=== PATIENT | male | born 1990 | race Caucasian/White ===

== ENCOUNTER 2016-10-05 12:27 | Emergency (ER) | payer BC ==
[2016-10-05] MEDS ORDERED: Ketorolac 30 MG/ML SDV IVPUSH ONE (13:34)
[2016-10-05] MEDS ORDERED: Sodium Chloride 0.9% 2.5 ML Syringe FLUSH PRN (13:34)
[2016-10-05] MEDS ORDERED: Sodium Chloride 0.9% 10 ML Syringe FLUSH PRN (13:34)
--- NOTE | 2016-10-05 14:36 | EDM.PDOC ---
ED HPI GENERAL MEDICAL PROBLEM - General Chief Complaint: Genitourinary Problem Stated Complaint: LOWER ABD PAIN Time Seen by Provider: 10/05/16 13:07 Source of Information: Reports: Patient History Limitations: Reports: No Limitations - History of Present Illness INITIAL COMMENTS - FREE TEXT/NARRATIVE: History of present illness: []Patient started having pain in his right testicle at 8 PM last night. Denies having any trauma or previous similar symptoms. He's not had pain with urinating denies any blood in his urine. Review of systems: As per history of present illness and below otherwise all systems reviewed and negative. Past medical history: As per history of present illness and as reviewed below otherwise noncontributory. Surgical history: As per history of present illness and as reviewed below otherwise noncontributory. Social history: No reported history of drug or alcohol abuse. Family history: As per history of present illness and as reviewed below otherwise noncontributory. Physical exam: General: Well developed, well nourished in NAD HEENT: Atraumatic, normocephalic, pupils reactive, negative for conjunctival pallor or scleral icterus, mucous membranes moist, throat clear, neck supple, nontender, trachea midline. Lungs: Clear to auscultation, breath sounds equal bilaterally, chest nontender. Heart: S1S2, regular, negative for clicks, rubs, or JVD. Abdomen: Soft, nondistended, nontender. Negative for masses or hepatosplenomegaly. Negative for costovertebral tenderness. Pelvis: Stable nontender. Genitourinary: Deferred. Rectal: Deferred. Extremities: Atraumatic, negative for cords or calf pain. Neurovascular unremarkable. Neuro: Awake, alert, oriented. Cranial nerves II through XII unremarkable. Cerebellum unremarkable. Motor and sensory unremarkable throughout. Exam nonfocal. Diagnostics: []UA, ultrasound negative for torsion findings suggestive of epididymitis Therapeutics: []Patient is given Toradol for pain Impression: []Epididymitis Plan: []Cipro, ice, elevate testicles follow-up with Dr. Henson as needed Definitive disposition and diagnosis as appropriate pending reevaluation and review of above. Right Pelvic Pain Score (Numeric/FACES): 8 - Related Data Allergies Allergy/AdvReac Type Severity Reaction Status Date / Time No Known Allergies Allergy Verified 10/05/16 12:40 Home Meds: Home Meds Ciprofloxacin HCl [Cipro] 500 mg PO BID #20 tablet 10/05/16 [Rx] Past Medical History - Past Surgical History GI Surgical History: Reports: Other (See Below) Other GI Surgeries/Procedures: Unknown esophogeal surgery as an . Musculoskeletal Surgical History: Reports: Arthroscopic Knee Social & Family History - Family History Family Medical History: Noncontributory - Tobacco Use Smoking Status *Q: Current Every Day Smoker Years of Tobacco use: 8 Packs/Tins Daily: 1 - Recreational Drug Use Recreational Drug Use: No ED ROS GENERAL - Review of Systems Review Of Systems: See Below ED EXAM, RENAL/ - Physical Exam Exam: See Below (See history of present illness) Course - Vital Signs Last Recorded V/S: Last Vital Signs Temp 36.8 C 10/05/16 14:29 Pulse 58 L 10/05/16 14:29 Resp 18 10/05/16 14:29 BP 116/67 10/05/16 14:29 Pulse Ox 98 10/05/16 14:29 - Orders/Labs/Meds Orders: Active Orders 24 hr Category Date Time Status Scrotal Duplex Ltd [US] Routine Exams 10/05/16 13:45 Taken Testicular US [Scrotum and Contents] [US] Stat Exams 10/05/16 13:34 Taken Sodium Chloride 0.9% [Saline Flush] Med 10/05/16 13:34 Active 10 ml FLUSH ASDIRECTED PRN Sodium Chloride 0.9% [Saline Flush] Med 10/05/16 13:34 Active 2.5 ml FLUSH ASDIRECTED PRN Saline Lock Insert [OM.PC] Stat Oth 10/05/16 13:34 Ordered Medication Orders Sodium Chloride (Saline Flush) 10 ml FLUSH ASDIRECTED PRN PRN Reason: Keep Vein Open Last Admin: 10/05/16 14:27 Dose: 10 ml Sodium Chloride (Saline Flush) 2.5 ml FLUSH ASDIRECTED PRN PRN Reason: Keep Vein Open Last Admin: 10/05/16 14:27 Dose: 2.5 ml Labs: Laboratory Tests 10/05/16 Range/Units 14:20 Urine Color YELLOW Urine Appearance CLEAR Urine pH 5.5 (5.0-8.0) Ur Specific [place] <= 1.005 (1.001-1.035) Urine Protein NEGATIVE (NEGATIVE) mg/dL Urine Glucose (UA) NEGATIVE (NEGATIVE) mg/dL Urine Ketones NEGATIVE (NEGATIVE) mg/dL Urine Occult Blood NEGATIVE (NEGATIVE) Urine Nitrite NEGATIVE (NEGATIVE) Urine Bilirubin NEGATIVE (NEGATIVE) Urine Urobilinogen 0.2 (<2.0) EU/dL Ur Leukocyte Esterase NEGATIVE (NEGATIVE) Urine RBC 0-1 (0-2/HPF) Urine WBC 0-2 (0-5/HPF) Ur Epithelial Cells OCCASIONAL (NONE-FEW) Urine Bacteria FEW (NEGATIVE) Meds: Medications Generic Name Dose Route Start Last Admin Trade Name Freq PRN Reason Stop Dose Admin Sodium Chloride 10 ml 10/05/16 13:34 10/05/16 14:27 Saline Flush FLUSH 10 ml ASDIRECTED PRN Administration Keep Vein Open Sodium Chloride 2.5 ml 10/05/16 13:34 10/05/16 14:27 Saline Flush FLUSH 2.5 ml ASDIRECTED PRN Administration Keep Vein Open Discontinued Medications Generic Name Dose Route Start Last Admin Trade Name Freq PRN Reason Stop Dose Admin Ketorolac Tromethamine 30 mg 10/05/16 13:34 10/05/16 14:27 Toradol IVPUSH 10/05/16 13:35 30 mg ONETIME ONE Administration Departure - Departure Time of Disposition: 15:02 Disposition: Home, Self-Care 01 Condition: Good Clinical Impression: Epididymitis - Discharge Information Prescriptions: Ciprofloxacin HCl [Cipro] 500 mg PO BID #20 tablet Referrals: PCP,None [Primary Care Provider] - Forms: ED Department Discharge Additional Instructions: The following information is given to patients seen in the emergency department who are being discharged to home. This information is to outline your options for follow-up care. We provide all patients seen in our emergency department with a follow-up referral. The need for follow-up, as well as the timing and circumstances, are variable depending upon the specifics of your emergency department visit. If you don't have a primary care physician on staff, we will provide you with a referral. We always advise you to contact your personal physician following an emergency department visit to inform them of the circumstance of the visit and for follow-up with them and/or the need for any referrals to a consulting specialist. The emergency department will also refer you to a specialist when appropriate. This referral assures that you have the opportunity for follow-up care with a specialist. All of these measure are taken in an effort to provide you with optimal care, which includes your follow-up. Under all circumstances we always encourage you to contact your private physician who remains a resource for coordinating your care. When calling for follow-up care, please make the office aware that this follow-up is from your recent emergency room visit. If for any reason you are refused follow-up, please contact the [facility] Emergency Department at and asked to speak to the emergency department charge nurse. Cipro twice a day for 10 days, Motrin for pain, ice and elevate testicle as much as possible. follow-up with urology [facility] Specialty [facility] - Urology [address] [place] [id number] - My Orders Last 24 Hours: My Active Orders 10/05/16 13:34 Testicular US [Scrotum and Contents] [US] Stat Sodium Chloride 0.9% [Saline Flush] 10 ml FLUSH ASDIRECTED PRN Sodium Chloride 0.9% [Saline Flush] 2.5 ml FLUSH ASDIRECTED PRN Saline Lock Insert [OM.PC] Stat 10/05/16 13:45 Scrotal Duplex Ltd [US] Routine - Assessment/Plan Last 24 Hours: My Active Orders 10/05/16 13:34 Testicular US [Scrotum and Contents] [US] Stat Sodium Chloride 0.9% [Saline Flush] 10 ml FLUSH ASDIRECTED PRN Sodium Chloride 0.9% [Saline Flush] 2.5 ml FLUSH ASDIRECTED PRN Saline Lock Insert [OM.PC] Stat 10/05/16 13:45 Scrotal Duplex Ltd [US] Routine
[2016-10-05 15:33] VITALS: BP 114/56
--- NOTE | 2016-10-07 12:26 | US ---
EXAM DATE: 10/05/16 PATIENT'S AGE: 25 Patient: ABIODUN RISK Facility: [place], [place] Site . Site : 1990 Study: US Testicle [id number] 2:13:15 PM Ordering Physician: Dipesh Rasmussen Final Report: CLINICAL HISTORY: Pain right testicle TECHNIQUE: Nino scale imaging was performed of the scrotum. In addition color Doppler and spectral Doppler analysis was performed of the testes. FINDINGS: The testes demonstrate normal arterial and venous blood flow on color Doppler and spectral Doppler analysis. The testes have uniform echogenicity with no evidence of a suspicious mass or area of inflammation. The right testis measures 3.5 x 3.6 x 3.5 cm in size and the left testis measures 3.9 x 3 x 1.9. The left epididymis appears normal. The right epididymis is heterogeneous in appearance with increased vascularity. There is right-sided scrotal soft tissue thickening. IMPRESSION: 1. No intratesticular mass. 2. Heterogeneity and increased vascularity of the right epididymis most likely reflecting epididymitis. Right scrotal soft tissue thickening. Dictated by Naty Nava MD @ Oct 05 2016 2:47PM (Electronic Signature) Report Signed by Proxy. LOLITA
--- NOTE | 2016-10-07 12:26 | US ---
EXAM DATE: 10/05/16 PATIENT'S AGE: 25 Patient: ABIODUN RISK Facility: [place], [place] Site . Site : 1990 Study: US Testicle [id number]/12/[id number] 2:13:15 PM Ordering Physician: Dipesh Rasmussen Final Report: CLINICAL HISTORY: Pain right testicle TECHNIQUE: Nino scale imaging was performed of the scrotum. In addition color Doppler and spectral Doppler analysis was performed of the testes. FINDINGS: The testes demonstrate normal arterial and venous blood flow on color Doppler and spectral Doppler analysis. The testes have uniform echogenicity with no evidence of a suspicious mass or area of inflammation. The right testis measures 3.5 x 3.6 x 3.5 cm in size and the left testis measures 3.9 x 3 x 1.9. The left epididymis appears normal. The right epididymis is heterogeneous in appearance with increased vascularity. There is right-sided scrotal soft tissue thickening. IMPRESSION: 1. No intratesticular mass. 2. Heterogeneity and increased vascularity of the right epididymis most likely reflecting epididymitis. Right scrotal soft tissue thickening. Dictated by Naty Nava MD @ Oct 05 2016 2:47PM (Electronic Signature) Report Signed by Proxy. LOLITA
== END 2016-10-05 15:33 | disposition home or self-care (01) ==
LOC: MW.ED 12:27
DX: N45.1 Epididymitis (principal); F17.210 Nicotine dependence, cigarettes, uncomplicated
CPT/HCPCS: 76870; 81001; 93976; 96374; 99284; J1885; 99283